=== PATIENT | male | born 1935 | race Caucasian/White ===

== ENCOUNTER 2017-09-01 07:38 | Observation (INO) ==
[2017-09-01] MEDS ORDERED: 0.9 % Sodium Chloride 1,000 ML ONE ×2 (08:29→08:43)
[2017-09-01] MEDS ORDERED: *HR* Heparin 10,000 UNIT/10 ML VIAL ONE (08:30)
[2017-09-01] MEDS ORDERED: Heparin 1,000 UNITS/500 mL 500 ML ONE (08:30)
[2017-09-01] MEDS ORDERED: Nitroglycerin 1,000 MCG/10 ML VIAL IV ONE (08:30)
[2017-09-01] MEDS ORDERED: Amiodarone Premix 150 MG/100 ML BAG IVPB ONE ×2 (08:48→08:54)
[2017-09-01] MEDS ORDERED: Amiodarone Premix 360 MG/200 ML BAG IVC ONE ×2 (09:08→14:47)
[2017-09-01] MEDS: Amiodarone Premix 360 MG/200 ML BAG IVC ONE ×2 (09:13→20:06)
[2017-09-01] MEDS: 0.9 % Sodium Chloride 1,000 ML IVC SCH ×2 (09:16→20:03)
--- NOTE | 2017-09-01 10:16 | Pre-Sedation Evaluation ---
Pre-sedation evaluation - Pre-sedation checklist Date of procedure: 09/01/17 Procedure: [facility] Recent Vitals: Last Vital Signs Temp 98.4 F 09/01/17 08:46 Pulse 154 09/01/17 08:46 Resp 18 09/01/17 08:46 BP 115/91 09/01/17 08:46 Pulse Ox 95 09/01/17 08:46 H&P (including ROS) documented in medical record: Yes Previous reaction to sedatives/anesthetics: No Dietary Status: NPO after Midnight Airway Assessment: Patient can open mouth completely, TMJ function normal, Micrognathia (under-bite, receding chin) absent, Neck with adequate range of motion Dentition: No loose teeth or bridges Possible difficult airway: No ASA Classification *see protocol: CLASS II-Mild systemic disease Plan of Care: Pt appropriate candidate for procedure/moderate/conscious sedation , Risks/benefits of procedure/sedation discussed w/ patient/family
--- NOTE | 2017-09-01 10:16 | History & Physical Report ---
Date of Encounter: 09/01/17 Time of Encounter: 08:45 24 Hour HP Update - Instructions Instructions: If the History and Physical is less than 30 days old and was completed prior to A.M. admission and or procedure and has NOT been updated on calendar day of procedure please complete this update prior to performing procedure. - Update Patient reports changes in Medical Condition: No Changes in examination, assessment, or condition: No Changes in Medication: No Preop tests/diagnostics Reviewed: Yes Surgery Remains Indicated: Yes Consent for Planned Operative Procedure(s) Verified: Yes - Pre-Operative Checklist Preoperative Checklist Indicated: No Prophylactic Antibiotic Ordered: No Home Medications Include Beta Radha: Yes Beta Radha Taken Today (Day of Surgery): Yes Beta Radha Taken Yesterday (Day Prior to Surgery): Yes Is VTE Prophylaxis Indicated?: NO
[2017-09-01] MEDS ORDERED: *HR* FentaNYL (PF) 100 MCG/2 ML VIAL ONE (10:21)
[2017-09-01] MEDS ORDERED: *HR* Midazolam HCl 2 MG/2 ML VIAL ONE (10:21)
[2017-09-01] MEDS ORDERED: Acetaminophen 325 MG TABLET PO PRN (11:09)
[2017-09-01] MEDS ORDERED: Nitroglycerin 0.4 MG TAB.SUBL SL PRN (11:09)
[2017-09-01] MEDS ORDERED: Dextrose Gel 15 GM PO PRN ×2 (11:16)
[2017-09-01] MEDS ORDERED: D5% in Water 1,000 ML IVC PRN (11:16)
[2017-09-01] MEDS ORDERED: *HR* Dextrose 50 % in Water (Syg) 50 ML SYRINGE IVP PRN (11:16)
--- NOTE | 2017-09-01 16:07 | Invasive Diagnostic Lab Proc ---
Name: Edgar Jones Date of Study: 09/01/2017 Date: 1935 Ht: 67.0in Medical Record#: [id number] Age: 82 Wt: 167.33lb Gender: Male BSA: 1.87 Order #: [id number] BMI: 26.2 Physicians Procedure Physician: Joelle Hatfield MD, [facility] Referring MD: Ad Coleman MD Referring MD: Staff Name Position Time In Kell Aranda RT (R) Monitor 10:19 AM MeenakshiMakenna RT (R) Scrub 10:19 AM Bri Payne RN Police Inspector 10:19 AM Emanuel Morin RN Police Inspector 10:19 AM Indications Indication Cardiomyopathy Procedures Performed Procedure L HRT ARTERY/VENTRICLE ANGIO Pre-Procedure Checklist Informed consent is complete signed and on chart. H&P is on chart. ID band is on and ID verified with patient. Patient NPO for procedure The procedure was described for the patient and questions were answered. Blood Pressure: 115/91 ECG is on chart. Rhythm: Atrial Fibrillation Plan of Care Patient will tolerate the procedure without complications. Adequate level of comfort will be maintained. Hemodynamics will remain stable Patient will recover from procedure without complications. Respiratory function will be maintained. Cardiac rhythm will remain stable. Patient temperature will be maintained. Patient and/or family have verbalized understanding of the procedure. Patient Education Chief Complaint/Reason for Test: Cardiac Cath Developmental Category: Geriatric (65+ years) Developmentally Appropriate for Age: Yes Learning Barriers: None Education Needs: Procedure Education Method: Verbal Information Taught: Cardiac Cath Educational Evaluation: Able to repeat information Intravenous Access Time IV Size Location DC'd Fluid/Drip Rate Units RN 08:38 AM Started with 20g 1 1/4" Lt Wrist 0.9NaCl 50 ml/hr Christine Dillon RN Allergies No Known Allergies Vital Signs Time BP (mmHg) HR (bpm) O2 Sat. RR (bpm) LOC 08:05 AM 115 / 91 154 95 % 18 5 = Fully awake and oriented or at pre-proc level 09:00 AM 97 / 75 101 95 % 16 5 = Fully awake and oriented or at pre-proc level 09:05 AM 100 / 93 96 95 % 14 5 = Fully awake and oriented or at pre-proc level 09:11 AM 115 / 75 91 97 % 12 5 = Fully awake and oriented or at pre-proc level 09:15 AM 119 / 69 91 94 % 16 5 = Fully awake and oriented or at pre-proc level 09:30 AM 111 / 78 72 95 % 15 5 = Fully awake and oriented or at pre-proc level 09:45 AM 110 / 76 72 100 % 17 5 = Fully awake and oriented or at pre-proc level 10:19 AM / % 5 = Fully awake and oriented or at pre-proc level 10:19 AM / % 4 = Oriented but drowsy 10:35 AM / % 4 = Oriented but drowsy 10:25 AM 118 / 79 71 96 % 20 10:29 AM 112 / 75 70 98 % 14 10:34 AM 104 / 69 70 98 % 20 10:39 AM 102 / 69 78 95 % 15 10:44 AM 101 / 68 95 96 % 19 10:49 AM 102 / 62 71 93 % 20 10:54 AM 103 / 72 73 95 % 32 11:11 AM 113 / 78 69 97 % 16 5 = Fully awake and oriented or at pre-proc level 11:30 AM 112 / 79 77 96 % 15 5 = Fully awake and oriented or at pre-proc level 11:45 AM 111 / 82 74 96 % 20 5 = Fully awake and oriented or at pre-proc level 12:00 PM 100 / 77 75 97 % 15 5 = Fully awake and oriented or at pre-proc level 12:15 PM 111 / 84 75 95 % 18 5 = Fully awake and oriented or at pre-proc level 12:45 PM 111 / 76 75 95 % 16 5 = Fully awake and oriented or at pre-proc level 01:00 PM 112 / 78 72 95 % 16 5 = Fully awake and oriented or at pre-proc level 01:15 PM 108 / 81 76 95 % 16 5 = Fully awake and oriented or at pre-proc level 01:30 PM 112 / 75 75 95 % 16 5 = Fully awake and oriented or at pre-proc level 01:45 PM 107 / 73 76 95 % 16 5 = Fully awake and oriented or at pre-proc level 02:00 PM 104 / 82 72 96 % 16 5 = Fully awake and oriented or at pre-proc level 02:15 PM 117 / 81 70 95 % 18 5 = Fully awake and oriented or at pre-proc level 02:30 PM 114 / 83 71 95 % 18 5 = Fully awake and oriented or at pre-proc level 03:30 PM 116 / 76 72 96 % 20 5 = Fully awake and oriented or at pre-proc level 03:46 PM 121 / 80 76 95 % 12 5 = Fully awake and oriented or at pre-proc level 03:00 PM 118 / 75 94 % 17 5 = Fully awake and oriented or at pre-proc level 03:15 PM 116 / 76 71 94 % 21 5 = Fully awake and oriented or at pre-proc level Procedural Medications Time Medication Dose Units Method Given By 08:57 AM Amiodarone 150 mg Intravenous Christine Dillon RN 09:12 AM Amiodarone 1 mg/min Intravenous Christine Dillon RN 10:26 AM Oxygen 2 L/min nasal cannula Emanuel Morin RN 10:30 AM Versed 1 mg Intravenous Emanuel Morin RN 10:30 AM Fentanyl 25 mcg Intravenous Emanuel Morin RN 10:41 AM Lidocaine 2% 17 ml Subcutaneous Joelle Hatfield MD, [facility] ASA Classification: CLASS II- Mild systemic disease (i.e. well-controlled diabetes, hypertension, asthma, cigarette smoking) Narda Score Preprocedure Postprocedure Activity 2- Moves 4 extremities sustained head lift Activity 2- Moves 4 extremities sustained head lift Circulation 2- SBP +/= 20 points of pre-anesthetic level Circulation 2- SBP +/= 20 points of pre-anesthetic level Consciousness 2- Awake and alert oriented x 3 Consciousness 2- Awake and alert oriented x 3 O2 Saturation 2- Able to maintain O2 satruation of 92% on room air O2 Saturation 2- Able to maintain O2 satruation of 92% on room air Respiratory 2- Able to deep breathe and cough well Respiratory 2- Able to deep breathe and cough well Total Score 10 Total Score 10 Contrast Agent: Isovue Diagnostic Contrast: 81 ml Total Contrast: 81 ml Fluoro Dose: 226 mGy Procedure Log Time Note Enter By 08:00 AM Risk for fall? Yes, Medications (change in amt./frequency,newly prescribed,potential combinations) [email or web address] 08:00 AM Evidence of mental, physical, or emotional abuse? No [email or web address] 08:00 AM Does patient have suicidal ideations? No [email or web address] 08:15 AM patient telemetry shows afib RVR, Patient asymptomatic other then complaints of shortness of breath x 1 month, Dr Joelle Hatfield notified via page [email or web address] 08:[address] Hatfield at bedside talking with patient and his regarding afib RVR. Orders received guillermo 08:57 AM Time: 08:57 Amiodarone 150 mg Intravenous Given by Christine Dillon RN 09:13 AM Time: 09:12 Amiodarone 1 mg/min Intravenous Given by Christine Dillon RN 10:15 AM CathStat 10:18 AM Pt arrived to computer lab assistant 2 at 10:18 twilson 10:18 AM Physician arrived 10:18 twilson 10:18 AM Meet and greet completed twilson 10:18 AM Sign in performed according to hospital policy. twilson 10:18 AM Procedure start 10:18 twilson 10:19 AM Time: :19 Patient comfortable and pain free: Yes twilson 10:19 AM Time: 10:19LOC: 5 = Fully awake and oriented or at pre-proc level twilson 10:19 AM Patient charges- Angio tray pack, Navilyst 3mm J, Pulse Oximetry and ACIST tubing and transducer twilson 10:19 AM IV Supplies used: J loop Angio Cath. twilson 10:19 AM Kell Aranda RT (R) Position: Monitor Time in: 10: twilson 10:19 AM Makenna Arrieta RT (R) Position: Scrub Time in: 10: twilson 10:19 AM Bri Payne RN Position: Police Inspector Time in: : twilson 10:19 AM Emanuel Morin RN Position: Police Inspector Time in: :19 twilson 10:24 AM Vitals capture started with the following parameters, Patient=Adult, Interval=5 min, Initial Rqormsgr=794 mmHg, Deflation Rate=5 mmHg, Cuff placed on Left Arm 10:25 AM HR=71 bpm, ZRRU=632/79 mmhg, SpO2=96.0 %, Resp=20 B/min 10:25 AM Recorded ECG: HR=72 Condition=Condition 1 10:26 AM Case Delayed patient was in a-fib RVR, treated with medication twilson 10:26 AM Hair removed from procedure site in procedure lab using clippers. Bilateral groin prepped with Chloraprep by Bri Payne RN, safety strap applied then patient was draped. Skin intact. twilson 10:26 AM Time: : Oxygen on at 2 L/min per nasal cannula by Emanuel Morin RN twilson 10:26 AM ASA Class CLASS II- Mild systemic disease (i.e. well-controlled diabetes, hypertension, asthma, cigarette smoking) twilson 10:29 AM HR=70 bpm, LTXP=387/75 mmhg, SpO2=98.0 %, Resp=14 B/min 10:30 AM Time: 10:30 Versed 1 mg Intravenous Given by Emanuel Morin RN twilson 10:30 AM Time: 10:30 Fentanyl 25 mcg Intravenous Given by Emanuel Morin RN twilson 10:32 AM Pressure channel 3 zeroed. 10:34 AM HR=70 bpm, ITZW=389/69 mmhg, SpO2=98.0 %, Resp=20 B/min 10:35 AM Time: 10:19LOC: 4 = Oriented but drowsy twilson 10:35 AM Time: 10:19 Patient comfortable and pain free: Yes twilson 10:39 AM Time out performed according to hospital policy twilson 10:39 AM HR=78 bpm, UTQG=181/69 mmhg, SpO2=95.0 %, Resp=15 B/min 10:41 AM Time: 10:41 17 ml Lidocaine 2% to right groin Subcutaneous Given by Joelle Hatfield MD, [facility] twilson 10:41 AM Access obtained by percutaneous puncture. 5Fr 10cm Terumo Bajadero sheath placed in right Femoral artery. [id number] twilson 10:42 AM 5Fr FL 4 catheter inserted over the wire DN twilson 10:42 AM Wire removed, intact. twilson 10:43 AM LCA angiography performed in multiple views. twilson 10:43 AM Recorded Pressure: Ao, HR=70, Condition=Condition 1 (Aorta) Ao 97/70/84 10:43 AM Recorded Pressure: Ao, HR=97, Condition=Condition 1 (Aorta) Ao 97/66/80 10:44 AM Recorded Pressure: Ao, KD=354, Condition=Condition 1 (Aorta) Ao 87/75/81 10:44 AM Wire reinserted. twilson 10:44 AM HR=95 bpm, YDKU=708/68 mmhg, SpO2=96.0 %, Resp=19 B/min 10:45 AM Catheter removed twilson 10:45 AM 5Fr FR 4 catheter inserted over the wire DN twilson 10:45 AM Wire removed, intact. twilson 10:46 AM Recorded Pressure: Ao, HR=68, Condition=Condition 1 (Aorta) Ao 103/71/86 10:46 AM RCA angiography performed in multiple views. twilson 10:46 AM Recorded Pressure: Ao, HR=70, Condition=Condition 1 (Aorta) Ao 98/73/85 10:47 AM Recorded ECG: HR=67 Condition=Condition 1 10:47 AM Wire reinserted and catheter removed, intact. twilson 10:47 AM 5Fr Pigtail catheter inserted over the wire [facility] twilson 10:48 AM Catheter selectively placed in left ventricle twilson 10:48 AM Wire removed, intact. twilson 10:48 AM Pressure channel 3 zeroed. 10:48 AM Recorded Pressure: LV, HR=73, Condition=Condition 1 (Left Ventricle) LV 96/15/16 10:49 AM Bolus angiogram of left Ventricle complete: 8 ml/sec for a total of 24 mls twilson 10:49 AM Recorded Pressure: LV, Ao, HR=70, Condition=Condition 1 (Left Ventricle) LV 101/26/32, (Aorta) Ao 91/62/76 10:49 AM HR=71 bpm, RFDP=268/62 mmhg, SpO2=93.0 %, Resp=20 B/min 10:51 AM Time: 10:35 Patient comfortable and pain free: Yes twilson 10:51 AM Time: 10:35LOC: 4 = Oriented but drowsy twilson 10:51 AM Wire reinserted and wire and catheter removed, intact. twilson 10:51 AM Bolus angiogram of right Femoral complete: 4 ml/sec for a total of 7 mls twilson 10:52 AM Coronary Dominance: right twilson 10:52 AM Procedure completed at 10:52 twilson 10:53 AM Sign out completed: Radiation Dose 226.17 mGy Fluoro Time: 1.6 Isovue 370 - 200ml contrast 81 ml given by Joelle Hatfield MD, [facility]. Complications: NoneCardiac Rehab Consult needed: NoConfirmed administered medications: Yes twilson 10:54 AM HR=73 bpm, XOSQ=141/72 mmhg, SpO2=95.0 %, Resp=32 B/min 10:55 AM Isovue 370 - 500ml,1 Bottle(s) used. twilson 10:55 AM Arterial sheath pulled, Mynx closure device used and was Successful S/N. twilson 10:55 AM Post ECG NSR twilson 10:55 AM Post Blood Pressure 103/72 twilson 10:56 AM 10:56 Post Pulses Bilateral DP & PT 1+ twilson 10:56 AM 10:56 Post Pulses Bilateral radial 2+ twilson 10:56 AM Information taught Cardiac Cath and Mynx twilson 10:56 AM Education needs Procedure, Plan of Care, and Responsibilities of Patient in Care twilson 10:57 AM Learning barriers :None twilson 10:57 AM Education Methods Verbal twilson 10:57 AM Education evaluation Able to repeat information twilson 10:57 AM Site status No bleeding/hematoma - Rt Groin as reported by Makenna Arrieta RT (R) at 10:57 twilson 10:57 AM Opsite applied twilson 10:57 AM Family placed in consult room. twilson 11:02 AM Lesion found in Proximal RCA. Pre Stenosis: 25 Pre GLORIA Flow: twilson 11:02 AM Lesion found in Mid RCA. Pre Stenosis: 30 Pre GLORIA Flow: twilson 11:03 AM Lesion found in Distal RCA. Pre Stenosis: 30 Pre GLORIA Flow: twilson 11:03 AM Right Coronary, Right Posterior Descending Arteries with Right Posterolateral and Acute Marginal branches with 95 % stenosis. If graft is supplying this area, 0 % stenosis twilson 11:04 AM Lesion found in Right PDA. Pre Stenosis: 95 Pre GLORIA Flow: twilson 11:05 AM Lesion found in LMCA. Pre Stenosis: 25 Pre GLORIA Flow: twilson 11:05 AM Left Main Coronary Artery with 25% stenosis twilson 11:05 AM Lesion found in Proximal LAD. Pre Stenosis: 50 Pre GLORIA Flow: twilson 11:05 AM Lesion found in Mid LAD. Pre Stenosis: 30 Pre GLORIA Flow: twilson 11:05 AM Proximal Left Anterior Descending Coronary Artery with 50% stenosis. If graft is supplying this territory, 0 % stenosis. twilson 11:05 AM Mid/Distal Left Anterior Descending Coronary Artery and diagonal branches with 30% stenosis. If graft is supplying this area, 0 % stenosis twilson 11:06 AM Lesion found in Proximal Circumflex. Pre Stenosis: 30 Pre GLORIA Flow: twilson 11:06 AM Lesion found in 1st Marginal. Pre Stenosis: 20 Pre GLORIA Flow: twilson 11:06 AM Circumflex, Obtuse Marginal, Left Posterior Descending, and Left Posterolateral Coronary Arteries with 30 % stenosis. If graft is supplying this area, 0 % stenosis twilson 11:06 AM Lesion found in Ramus. Pre Stenosis: 30 Pre GLORIA Flow: twilson 11:06 AM Ramus with 30% stenosis. If graft is supplying this area, 0 % stenosis twilson 11:07 AM Report given to Christine LEI Pt taken to Holding room Room #3. 11:07 twilson 11:07 AM Patient out of room: 11:07 twilson 11:07 AM Voicemail left with bed manangement in regards to a bed for this patient. twilson 11:52 AM EKG obtained and shown to Dr. Liu li 03:58 PM report called to Anamaria on , patient transferred to mprater Complications Complication None Hemodynamics Pressures Site Systolic/A Wave Diastolic/V Wave Mean AO 97 70 84 AO 97 66 80 AO 87 75 81 AO 103 71 86 AO 98 73 85 LV 96 15 16 LV 101 26 32 AO 91 62 76 Post Procedure Information Blood Pressure: 103/72 mmHg Rhythm: NSR Post procedural instructions were given Closure Device Time Device Success/Fail 09/01/2017 10:53:00 AM MynxGrip Successful Site Checks Time Location Status Staff Sheath In? Note 10:57 AM Rt Groin No bleeding/hematoma Makenna Arrieta RT (R) 11:11 AM Rt Groin No bleeding/ No Hematoma Bri Payne RN 11:30 AM Rt Groin No bleeding/ No Hematoma Trupti Anderson RN 11:45 AM Rt Groin No bleeding/ No Hematoma Trupti Anderson RN 12:00 PM Rt Groin No bleeding/ No Hematoma Emanuel Morin RN 12:15 PM Rt Groin No bleeding/ No Hematoma Emanuel Morin RN 12:45 PM Rt Groin No bleeding/ No Hematoma Emanuel Morin RN 01:00 PM Rt Groin No bleeding/ No Hematoma Christine Dillon RN 01:15 PM Rt Groin No bleeding/ No Hematoma Christine Dillon RN 01:30 PM Rt Groin No bleeding/ No Hematoma Christine Dillon RN 01:45 PM Rt Groin No bleeding/ No Hematoma Christine Dillon RN 02:00 PM Rt Groin No bleeding/ No Hematoma Christine Dillon RN 03:46 PM Rt Groin No bleeding/ No Hematoma Makenna Arrieta RT (R) 03:00 PM Rt Groin No bleeding/ No Hematoma Christine Dillon RN Pulses Time Site Pre-Procedure Post-Procedure Note 09/01/2017 9:13:00 AM Bilateral DP & PT 1+ 09/01/2017 9:14:00 AM Bilateral radial 2+ 10:56:00 AM Bilateral DP & PT 1+ 10:56:00 AM Bilateral radial 2+ 09/01/2017 11:11:00 AM Bilateral DP & PT 1+ 09/01/2017 11:30:00 AM Bilateral DP & PT 1+ 09/01/2017 11:45:00 AM Bilateral DP & PT 1+ 09/01/2017 12:00:00 PM Bilateral DP & PT 1+ 09/01/2017 12:15:00 PM Bilateral DP & PT 1+ 09/01/2017 12:45:00 PM Bilateral DP & PT 1+ 09/01/2017 1:30:00 PM Bilateral DP & PT 1+ 09/01/2017 3:28:00 PM Bilateral DP & PT 1+ 09/01/2017 3:46:00 PM Bilateral DP & PT 1+ Updated by Christine Dillon RN on 09/01/2017 4:00:21 PM Christine Dillon RN electronically signed on 09/01/2017 4:00:52 PM with status of Final
[2017-09-01] MEDS: Insulin LISPRO 300 UNITS/3 ML VIAL SQ SCH ×2 (16:31→17:02)
[2017-09-01] MEDS ORDERED: *HR* Rivaroxaban 10 MG TABLET PO SCH (17:00)
[2017-09-01] MEDS: Isosorbide MONOnitrate (24 HR) 30 MG TAB.ER.24H PO SCH (17:02)
[2017-09-01 19:25] LABS: Hemoglobin A1C 6.4 %
[2017-09-01] MEDS: Lisinopril 20 MG TABLET PO SCH (20:46)
[2017-09-01] MEDS: Metoprolol XL (24 HR) Succ 25 MG TAB.ER.24H PO SCH (20:49)
[2017-09-02 05:55] LABS: Basophils % 0.5 %; Eosinophils # 0.3 K/mcL (0.0-0.6); Eosinophils % 3.3 %; Hemoglobin 11.9 g/dL (12.9-16.9); Immature Granulocytes % 0.2 % (0-4); Lymphocytes # 1.9 K/mcL (0.6-4.6); Mean Corpuscular HGB Conc 32.2 g/dL (31.6-35.5); Mean Corpuscular Volume 84.1 fL (83.0-100.0); Mean Platelet Volume 12.7 fL (9.4-12.4); Monocytes # 1.1 K/mcL (0.0-1.3); Monocytes % 12.4 %; Neutrophils # 5.6 K/mcL (1.6-8.9); Platelet Count 148 K/mcL (140-400); Red Cell Distribution Width 15.2 % (11.5-14.5); Segmented Neutrophils % 62.6 %
[2017-09-02 05:59] LABS: BUN/Creatinine Ratio 13 (6-26); Blood Urea Nitrogen 13 mg/dL (8-26); Calcium 8.5 mg/dL (8.6-10.8); Carbon Dioxide 25 mEq/L (19-29); Chloride 107 mEq/L (98-109); Glucose 139 mg/dL (70-99); Osmolality,Calculated 288 (280-300); Potassium 4.3 mEq/L (3.5-4.5); Sodium 138 mEq/L (136-145); eGFR For African Americans > 60 (> 60); eGFR For Non-African Americans > 60 (> 60)
[2017-09-02] MEDS: Insulin LISPRO 300 UNITS/3 ML VIAL SQ SCH (07:56)
[2017-09-02] MEDS: Lisinopril 20 MG TABLET PO SCH (08:03)
[2017-09-02] MEDS: Metoprolol XL (24 HR) Succ 25 MG TAB.ER.24H PO SCH (08:03)
[2017-09-02] MEDS: Isosorbide MONOnitrate (24 HR) 30 MG TAB.ER.24H PO SCH (08:05)
[2017-09-02 08:16] VITALS: BP 106/70
[2017-09-02] MEDS ORDERED: amLODIPine 5 MG TABLET PO SCH (09:00)
[2017-09-02] MEDS ORDERED: Finasteride 5 MG TABLET PO SCH (09:00)
[2017-09-02] MEDS ORDERED: Aspirin 81 MG TAB.CHEW PO SCH (09:00)
--- NOTE | 2017-09-02 09:07 | Discharge Summary ---
Date of Encounter: 09/02/17 Time of Encounter: 09:04 - Discharge Diagnosis (1) Cardiomyopathy Priority: Primary Status: Acute Qualifiers: Cardiomyopathy type: unspecified Qualified Code(s): I42.9 - Cardiomyopathy , unspecified (2) CAD (coronary artery disease) Priority: Primary Status: Acute Qualifiers: Coronary Disease-Associated Artery/Lesion type: [place] artery [place] vs. transplanted heart: [place] heart Associated angina: without angina Qualified Code(s): I25.10 - Atherosclerotic heart disease of [place] coronary artery without angina pectoris (3) A-fib Priority: Secondary Status: Acute Qualifiers: Atrial fibrillation type: paroxysmal Qualified Code(s): I48.0 - Paroxysmal atrial fibrillation - Discharge Medications Prescriptions: Nitroglycerin 0.4 mg SL Q5MIN PRN #30 tab.subl PRN Reason: Chest Pain Amiodarone [Cordarone] 200 mg PO BID #60 tablet Atorvastatin [Lipitor] 20 mg PO HS #30 tablet Isosorbide MONOnitrate (24 HR) [Imdur] 30 mg PO DAILY #30 tab.er.24h Metoprolol XL (24 HR) Succ [Toprol Xl] 25 mg PO BID #60 tab.er.24h Home Medications: Amlodipine Besylate 10 mg PO DAILY 09/01/17 [History] Aspirin Enteric Coated [Aspirin EC] 81 mg PO DAILY 09/01/17 [History] Finasteride [Proscar] 5 mg PO DAILY 09/01/17 [History] Furosemide [Lasix] 40 mg PO DAILY 09/01/17 [History] Glucosam Sul Na/Chondr Galvin A Na [Glucosamine-Chondroitin Tablet] 1 each PO BID [History] Imiquimod [Aldara] 1 each TP [id number] 09/01/17 [History] Lisinopril [Zestril] 40 mg PO BID 09/01/17 [History] Rivaroxaban [Xarelto] 20 mg PO DAILY 09/01/17 [History] Terazosin [Hytrin] 5 mg PO HS 09/01/17 [History] Amiodarone [Cordarone] 200 mg PO BID #60 tablet 09/02/17 [Rx] Atorvastatin [Lipitor] 20 mg PO HS #30 tablet 09/02/17 [Rx] Isosorbide MONOnitrate (24 HR) [Imdur] 30 mg PO DAILY #30 tab.er.24h 09/02/17 [ Rx] Metoprolol XL (24 HR) Succ [Toprol Xl] 25 mg PO BID #60 tab.er.24h 09/02/17 [Rx] Nitroglycerin 0.4 mg SL Q5MIN PRN #30 tab.subl 09/02/17 [Rx] metFORMIN [Glucophage] 850 mg PO BIDWM #0 09/02/17 [Rx] Allergies/Adverse Reactions: 3 Allergy/AdvReac Type Severity Reaction Status Date / Time No Known Allergies Allergy Verified 09/01/17 08:13 Procedures/tests Complete & Pending: Procedures Performed prior 72 hours Category Date Time Status CL Cardiac Catheterization [CL] Routine 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 09/01/17 08:21 Completed ECG 12 lead ECG [ECG] Stat Y 09/01/17 11:09 Completed Date of admission: 09/01/17 16:24 Primary care physician: Ad Coleman MD Consults: 09/01/17 17:00 Consult to Nutrition [CONS] Routine Comment: Consulting Provider: NUTRITION Reason for Dietary Consult: MST Score Discharging clinician: Zack Lord Anticipated date of discharge: 09/02/17 - Patient Status Disposition: Home, Self-Care Condition: Fair Functional capacity at discharge: independent ambulation Overall status at discharge: patient is progressing back to baseline - Discharge Instructions Follow Up With: Ad Coleman MD [Primary Care Provider] - Additional Instructions: RISK FACTORS: STOP SMOKING: If you smoke, STOP. Smoking or tobacco use significantly increases your risk of heart disease because nicotine causes the arteries to narrow or constrict. It also causes fats to stick to the artery. Your chances of having a heart attack are greatly increased if you continue to smoke. For more information, call the education line for smoking cessation 1-569-SKMHGDK EAT A LOW FAT/CHOLESTEROL/SODIUM DIET: This diet may help reduce your chances of having a heart attack. LIFTING: Avoid lifting anything more than 10 pounds for 5-7 days Prior to straining, laughing, sneezing and/or coughing, apply manual pressure directly over insertion site. ACTIVITY: You may walk or climb stairs as tolerated You can resume sexual activity as tolerated In general, you are encouraged to engage in a minimum of 30 minutes or more of moderate intensity physical activity, such as brisk walking, daily or at least 3 -4 times weekly BATHING Do not submerge the site into water (bath tub, hot tub, swimming pool) for 1 week. This can be a source for infection into the blood stream. You may shower after 24 hours SITE CARE: After 24 hours, you may remove the dressing and leave the site open to air. Keep the site clean and dry. Clean gently and pat dry. You can expect bruising and tenderness that gradually resolve within a week or two. Return to work as instructed per your physician Resume driving as instructed per physician Keep all scheduled follow up appointments Resume medications as instructed IMPORTANT: If prescribed a Platelet Aggregation Inhibitor such as, Plavix, Brilinta or Effient: Duration of therapy is minimum one year These medications are often used in combination with Aspirin in prevention of future heart attacks Never discontinue unless consult with your Pv Design Engineer STROKE (CVA) Risk factors for a stroke are: Age, cigarette smoking, diabetes, excessive alcohol consumption, family history, high blood pressure, overweight, physical inactivity, prior stroke, heart attack, diagnosis of carotid artery stenosis or other artery disease. Warning signs: Sudden numbness or weakness of the face, arm or leg; especially on one side of the body, sudden confusion, trouble speaking or understanding, sudden trouble seeing in one or both eyes, sudden trouble walking, dizziness, loss of balance or coordination, sudden severe headache with no cause. Call 911 or go to the Emergency Room. CONGESTIVE HEART FAILURE: If you have been diagnosed with Congestive Heart Failure (CHF) and your symptoms return, make an appointment with your physician Weigh yourself daily. Notify your physician if you have a weight gain of two or more pounds in one day or five or more pounds in one week. If you experience any difficulty breathing, please call 911 BLEEDING: Although the risk of bleeding is minimal, it can happen. If you have any bleeding from the site, apply firm pressure above the puncture site for 10-15 minutes. If the bleeding does not stop, continue manual pressure and call 911 Contact your physician if: You develop a fever greater than 101 degrees Fahrenheit Your site becomes reddened or has any drainage You have an increase in pain or burning at the site or if a large knot forms at the site. If you experience chest pain, shortness of breath, dizziness, or extreme tiredness, stop the activity and rest. Please notify your physicians office if you experience any of these symptoms and they are not relieved by rest please call 911! - Diet and Activity Activity: increase activity as tolerated Diet: low fat, low cholesterol, low salt diet - Hospital Course Hospital course: Mr. Jones is a 82 year old male that presented yesterday for outpt LHC for new CMP. He presented in A-Fib with RVR and amio gtt was started. He converted to SR. LHC revealed triple vessel CAD, moderate-severe LV dysfunction EF 30%. No intervention, medical management recommended. Pt reports dyspnea. He denies chest pain. Will give one time dose of IV Lasix prior to D/C. Labs and vitals stable. Right femoral access site healing well. No bleeding, hematoma or ecchymosis noted. For A-Fib RVR, Dr. Joelle Hatfield recommends transitioning to PO Amiodarone 200mg BID x 1 month, then decreasing to daily dosing. Rx given. Xarelto started for anticoagulation. In regards to his CMP, he is on BB ( switched to long acting) and SIOMARA-i. Statin also changed to Lipitor. Pt is on Metformin, instructed to hold for 48 hours. Recheck echo in 3 months as outpt to evaluate if ICD is warranted. Pt is being discharged home in stable condition. Follow-up as outpt with Dr. Good--will coordinate. - Time Spent with Patient Total time spent providing and/or coordinating discharge services: Less than 30 minutes Physical Examination Vital Signs, Last 4 Hours Temp Pulse Resp BP Pulse Ox 09/02/17 08:17 69 09/02/17 08:15 68 18 106/70 94 09/02/17 07:38 98.2 F 73 16 113/80 94 Vital Signs Temp Pulse Resp BP Pulse Ox 09/02/17 08:17 69 09/02/17 08:15 68 18 106/70 94 09/02/17 07:38 98.2 F 73 16 113/80 94 09/02/17 04:30 62 09/02/17 03:50 97.8 F 64 20 102/70 95 09/02/17 01:50 64 94/59 09/01/17 23:50 64 09/01/17 23:45 97.5 F L 65 17 102/67 96 09/01/17 22:48 63 102/67 92 09/01/17 21:01 78 09/01/17 19:52 97.4 F L 76 17 103/94 94 09/01/17 16:41 71 09/01/17 16:26 98.2 F 73 16 111/76 94 Intake and Output 09/01/17 09/02/17 09/02/17 23:59 07:59 15:59 Intake Total 1000 / 1000 400 / 400 200 / 200 Output Total 500 / 500 475 / 475 300 / 300 Balance 500 / 500 -75 / -75 -100 / -100 Intake: IV Fluids 1000 / 1000 200 / 200 0.9 % Sodium Chloride 1,000 ML 1000 / 1000 @ 50 mls/hr IVC .Q20H KALEE Rx#: [id number] Oral 400 / 400 Output: Urine 500 / 500 475 / 475 300 / 300 Other: Weight 75 kg Blood Glucose* 79 135 Patient Weight 09/02/17 23:59 Weight 75 kg General: Conversant, No Apparent Distress HEENT: Atraumatic, Normocephaly, Mucus Membranes Moist Neck: No JVD, Normal carotid pulses Cardiac: Reg Rate and Rhythm, Normal S1 and S2, No Murmur Lungs: Normal Breath Sounds, No Wheeze, Rales, Rhonchi Neuro: Alert and responsive, No focal deficits noted Abdomen: Soft, Non-Tender Skin: Other (right femoral access site healing well. No bleeding, hematoma or ecchymosis noted.) Musculoskeletal: No Chest Wall Tenderness Extremities: No Clubbing, No Cyanosis, No Edema, Normal Pulses - VTE Reasons for not Prescribing Prophylaxis: Not indicated-Anticoagulated or INR therapeutic
[2017-09-02] MEDS ORDERED: *HR* Amiodarone 200 MG TABLET PO SCH (09:15)
[2017-09-02] MEDS ORDERED: Furosemide 40 MG/4 ML VIAL IVP ONE (09:29)
--- NOTE | 2017-09-03 15:18 | Electrocardiograph Report ---
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
== END 2017-09-02 10:45 | disposition home or self-care (01) | DRG 287 ==
LOC: INVDIALAB 07:38 → INTOOBSV 16:24 → 2NNU 16:24
PROVIDERS: ADMIT Internal Medicine Interventional Cardiology; ATTEND Internal Medicine Interventional Cardiology